=== PATIENT | female | born 1960 | race Caucasian/White ===

== ENCOUNTER → 2017-10-08 | Outpatient (CLI) | payer MEDICARE ==
[2017-10-08 15:28] LABS: Blood Urea Nitrogen 12 mg/dL (7-17)
--- NOTE | 2017-10-09 08:52 | CT ---
EXAMINATION TYPE: CT abdomen pelvis w con DATE OF EXAM: 10/08/2017 HISTORY: Patient complains of RLQ pain. CT DLP: 533mGycm Automated Exposure Control for Dose Reduction was Utilized. CONTRAST: CT scan of the abdomen and pelvis is performed with oral and with IV Contrast, patient injected with 100 mL of Isovue 300. COMPARISON: None FINDINGS: Patient has very little intra-abdominal fat making evaluation slightly suboptimal LUNG BASES: There is small right pleural effusion. There is tiny left pleural effusion. There is biba silar linear scarring and/or atelectasis. LIVER/GB: Liver is mildly enlarged in size and heterogeneous in appearance no intraluminal CT dense g allstones are present. PANCREAS: Pancreatic duct is visualized in the head and body but not suspiciously dilated. It is seen to ampulla coronal image 25. SPLEEN: No significant abnormality is seen. ADRENALS: No significant abnormality is seen. KIDNEYS: No significant abnormality is seen. BOWEL: The oral contrast does not reach colonic level making evaluation of distal bowel somewhat subo ptimal. Gas-filled Appendix is felt within normal limits from medial aspect cecum seen best coronal i mage 26. There is no suspicious small or large bowel dilatation. Diverticula are seen in the sigmoid colon without CT evidence for acute diverticulitis. Slightly low-lying cecum with right pelvis is pre sent. UTERUS/ADNEXA: There is anteverted heterogeneous uterus with lobulated margins, there are calcified a nd hypoechoic fibroids present in intramural and subserosal location. LYMPH NODES: No greater than 1cm abdominal or pelvic lymph nodes are appreciated. OSSEOUS STRUCTURES: Slightly prominent Schmorl nodes centered L3-L4 disc space are noted. OTHER: There is mild to moderate mixed plaque in the abdominal aorta extending into branch vessels. T here is anatomic variant of the celiac axis . More moderate to severe predominately calcified plaque in the common iliac arteries is noted. IMPRESSION: No CT evidence for acute appendicitis. No significant acute finding is seen to account fo r patient's clinical symptoms. Uterine fibroids and other findings as noted above.
== END | disposition home or self-care (01) ==
LOC: RADCTMAIN 14:01
PROVIDERS: ATTEND Family Medicine
DX: D25.1 Intramural leiomyoma of uterus (principal); D25.2 Subserosal leiomyoma of uterus; R16.0 Hepatomegaly, not elsewhere classified; K57.30 Diverticulosis of large intestine without perforation or abscess without bleeding; N85.4 Malposition of uterus; I70.0 Atherosclerosis of aorta; I70.8 Atherosclerosis of other arteries
CPT/HCPCS: 82565; 84520; 74177; 36415; Q9967

== ENCOUNTER → 2017-11-12 | Outpatient (CLI) | payer MEDICARE ==
[2017-11-12 13:01] LABS: ALT 45 U/L (9-52); AST 27 U/L (14-36); Albumin 4.4 g/dL (3.5-5.0); Alkaline Phosphatase 107 U/L (38-126); Anion Gap 6 mmol/L; Blood Urea Nitrogen 14 mg/dL (7-17); Calcium 10.1 mg/dL (8.4-10.2); Carbon Dioxide 30 mmol/L (22-30); Chloride 101 mmol/L (98-107); Glucose 181 mg/dL (74-99); Potassium 5.2 mmol/L (3.5-5.1); Sodium 137 mmol/L (137-145); Total Protein 7.3 g/dL (6.3-8.2)
[2017-11-12 13:18] LABS: T4, Free (Free Thyroxine) 3.55 ng/dL (0.78-2.19)
[2017-11-12 21:32] LABS: Hemoglobin A1C 9.2 % (4.0-6.0)
== END ==
LOC: LABWHC1 11:55
PROVIDERS: ATTEND Internal Medicine Endocrinology, Diabetes & Metabolism
DX: E11.65 Type 2 diabetes mellitus with hyperglycemia (principal); E05.00 Thyrotoxicosis with diffuse goiter without thyrotoxic crisis or storm
CPT/HCPCS: 36415; 80053; 83036; 84439; 84443; 84480